=== PATIENT | male | born 1940 | race Caucasian/White ===

== ENCOUNTER 2017-10-04 17:01 | Emergency (ER) | payer MEDICARE, BC ==
--- NOTE | 2017-10-04 20:48 | EDM.PDOC ---
ED HPI GENERAL MEDICAL PROBLEM - General Chief Complaint: CPR in Progress Stated Complaint: [facility] Time Seen by Provider: 10/04/17 17:14 Source of Information: Reports: EMS, EMS Notes Reviewed, Family (Brother), RN Notes Reviewed - History of Present Illness INITIAL COMMENTS - FREE TEXT/NARRATIVE: 77-year-old male found unresponsive at his home by a brother at around 16:20 this afternoon. His brother had been visiting him earlier in the afternoon. He was complaining of some "chest congestion" but no indication that he was having chest pain or difficulty breathing. His brother than left the home for a very short period of time and when he came back at 16:40 his brother found him slumped over a coffee type table completely unresponsive. He did not appear to be breathing. He was dusky. 911 was called. Upon EMS arrival short time later they found that he indeed was not breathing without a pulse. The brother had started CPR. CPR was continued. Monitor showed some very agonal low -voltage type of electrical activity with no pulse. IV was started. He was given 3 doses of epinephrine 1 mg each. Intubation was attempted but unsuccessful. Therefore Rosalio airway was inserted and bagged ventilations were continued while in route to the ED. At no time did they get any improvement in rythm or did they get a pulse. It really it not known how long he was down prior to arrival but thought to be in the range of 5 to 25 minutes. At time of arrival to ED no medical hx available. The brother not present upon patient arrival. No further hx available at time of patient arrival. Code Blue called a few minutes prior to patient arrival. ED ROS GENERAL - Review of Systems Review Of Systems: Unable To Obtain ED EXAM, CPR - Physical Exam Exam: See Below Limited By: Unresponsive General Appearance: Other (unresponsive, CPR in progress on patient arrival) Eye Exam: Bilateral Eye: Other (pupils dilated, not reactive to light) Ears: Normal External Exam Nose: Normal Inspection Throat/Mouth: Other (Rosalio air way in place, no blood visible) Head: Atraumatic, Other (no visible swelling or bruising of the head or scalp). No: Facial Swelling Neck: Other (larynx quite visible due to thin neck, is sitting somewhat off of the midline to the right) Cardiovascular: Normal Pulse, Pulse with Compression, CPR In Progress GI/Abdominal Exam: No Mass. No: Distended Extremities: Other (L ankle wrapped in an alex wrap, hands are cold) Skin Exam: Mottled, Pallor Course - Re-Assessments/Exams Free Text/Narrative Re-Assessment/Exam: 10/05/17 15:41. Chart completed next day at this time. CPR was continued after patient arrival to give time to collect info from EMS, evaluate patient, patient condition and rythm. He had already had 3 1 mg doses of epi IV [employer] given by EMS, prolonged CPR of over 20 minutes. He did have a good femoral pulse with CPR, no pulse when CPR stopped. Cardiac Moniter showed very low voltage slow rate wide complex electrical activity, agonal in nature with no pulse. Pupils dilated, nonreactive to light. Hands are cold to touch. Code stopped at 17:03, shortly after patient arrival. The 911 call had gone out about 23 to 25 minutes earlier. Therefore on arrival to ED he had been down for at least 20 minutes and up to 40 or more minutes with PEA agonal rythm only after EMS arrival. After evaluation and review of information from EMS it was apparent that he was not going to be resuscitated and if we were to get some heart activity back the liklihood of return to normal neuro status and discharge from hospital in normal condition extremely close to zero. I did later have opportunity to visit with his brother that found him prior to arrival. He states that he had seemed OK earlier this afternoon when visiting him. He had complained of some "congestion in his chest". He did not seem to be having pain, did not appear to be short of breath. No other unusual sx noted. He had not seen a medical provider for a very long time. He was having difficulty with an ulcer L ankle and foot but had not been seeking medical attention for that. After the code had been stopped we did unwrap the Alex Bandage L ankle and foot. Large circumferential full skin thickness ulcer present L ankle, proximal L foot. Foul smelling but no visible drainage. No other skin lesions present. I did discuss this with Dr Adam Crawford, Unit Controller. No foul play suspected. He will review old medical records Friday. Because I will be out of town for the next 9 days he will complete the certificate. He has asked that copy of this clinical report be faxed by Medical Records to [facility] for his review. Presumtive Dx Silent Myocardial Infarction Cardiac Arrythmia Recorded time of 17:03 Departure - Departure Time of Disposition: 17:05 Disposition: 20 Clinical Impression: Cardiac arrest Myocardial infarction Qualifiers: Myocardial infarction type: unspecified Involved coronary artery: unspecified coronary artery Qualified Code(s): I21.9 - Acute myocardial infarction, unspecified Cardiac arrhythmia Qualifiers: Arrhythmia type: unspecified cardiac arrhythmia Qualified Code(s): I49.9 - Cardiac arrhythmia, unspecified - Discharge Information Referrals: PCP,None [Primary Care Provider] - Forms: ED Department Discharge
== END 2017-10-04 19:15 | disposition expired ==
LOC: JD.ED 17:01 → EDBD 17:01 → JD.ED 19:15
DX: I46.9 Cardiac arrest, cause unspecified (principal); I21.9 Acute myocardial infarction, unspecified; I49.9 Cardiac arrhythmia, unspecified
CPT/HCPCS: 92950; 99283; 99285-25